=== PATIENT | female | born 1945 | race Caucasian/White ===

== ENCOUNTER 2016-11-12 09:23 | Inpatient (IN) | payer MEDICARE, BC ==
[~2016-11-12] VITALS: Ht 162.6 cm; Wt 69.7 kg
[2017-01-05] VITALS (11 sets, daily range): BP systolic 90–128; BP diastolic 50–70; PULSE 48–64; TEMP 97.3–98
[2017-01-05] MEDS ORDERED: ALLEGRA 60MG TA60 MG PO (08:26)
[2017-01-05] MEDS ORDERED: CRESTOR5 MG PO (08:27)
[2017-01-05] MEDS ORDERED: BENICAR 20MG TA20 MG PO (08:27)
[2017-01-05] MEDS ORDERED: TENORMIN100 MG PO (08:27)
[2017-01-05] MEDS ORDERED: HCTZ12.5TAB PO (08:28)
[2017-01-05] MEDS ORDERED: HUMALOGKP50/50 SQ (08:29)
[2017-01-05] MEDS ORDERED: LANTUS100 U/ML SQ (08:30)
[2017-01-05] MEDS ORDERED: PROTONIX 40MG T40 MG PO (08:31)
[2017-01-05] MEDS ORDERED: ONGLYZA5 MG PO (08:31)
[2017-01-05] MEDS ORDERED: CARAFATE 1GM1 G PO (08:33)
[2017-01-05] MEDS ORDERED: FLONASEALLERGY (08:34)
[2017-01-05] MEDS ORDERED: SYSTANE 0.4%-0.1 SOL OP (08:35)
[2017-01-06 00:50] VITALS: BP 126/48; PULSE 52; TEMP 98.1
[2017-01-06 04:59] VITALS: BP 110/52; PULSE 52; TEMP 98.1
[2017-01-06 06:34] LABS: HEMATOCRIT 33.9 % (37.0-47.0); HEMOGLOBIN 11.1 g/dl (12.5-16.0)
[2017-01-06 07:54] VITALS: BP 104/51; PULSE 57; TEMP 98.2
[2017-01-06 11:40] VITALS: BP 111/55; PULSE 55
[2017-01-06 16:14] VITALS: BP 110/51; PULSE 58; TEMP 97.8
[2017-01-06 19:02] VITALS: BP 128/48; PULSE 60; TEMP 98.9
[2017-01-07 00:06] VITALS: BP 135/65; PULSE 78; TEMP 98.9
[2017-01-07 04:00] VITALS: BP 116/56; PULSE 61; TEMP 98.9
[2017-01-07 05:01] LABS: HEMATOCRIT 34.1 % (37.0-47.0); HEMOGLOBIN 11.2 g/dl (12.5-16.0)
[2017-01-07 10:03] VITALS: BP 151/63; PULSE 70
[2017-01-07 20:35] VITALS: BP 126/49; PULSE 74; TEMP 98.5
[2017-01-08 04:01] VITALS: BP 125/54; PULSE 72; TEMP 98.4
[2017-01-08 08:37] VITALS: BP 118/61; PULSE 77; TEMP 98.8
[2017-01-08 11:50] VITALS: BP 96/47; PULSE 68; TEMP 97.9
== END 2017-01-08 14:30 | disposition home or self-care (01) | DRG 470 ==
LOC: JCC 12-08 12:00
PROVIDERS: Orthopaedic Surgery
PROC: 0SRC0J9 Replacement of Right Knee Joint with Synthetic Substitute, Cemented, Open Approach (ICD-10-PCS; principal; 2017-01-06)
DX: M17.11 Unilateral primary osteoarthritis, right knee (principal); I10 Essential (primary) hypertension; E11.9 Type 2 diabetes mellitus without complications; G14 Postpolio syndrome; K21.9 Gastro-esophageal reflux disease without esophagitis; R13.10 Dysphagia, unspecified; Z86.73 Personal history of transient ischemic attack (TIA), and cerebral infarction without residual deficits
CPT/HCPCS: 99222; 99231-AI; 99233-AI; 99238; A4315; A9284; C1713; C1776; J0461; J0690; J1815; J2250; J2405; J2704; J3010; J3260; J7030

== ENCOUNTER → 2016-12-24 | Outpatient (CLI) | payer MEDICARE, BC ==
[~2016-12-24] MED LIST: ALLEGRA 60MG TA60 MG PO; BENICAR 20MG TA20 MG PO; CARAFATE 1GM1 G PO; CRESTOR5 MG PO; FLONASEALLERGY; HCTZ12.5TAB PO; HUMALOGKP50/50 SQ; LANTUS100 U/ML SQ; ONGLYZA5 MG PO; PROTONIX 40MG T40 MG PO; SYSTANE 0.4%-0.1 SOL OP; TENORMIN100 MG PO
[2016-12-24 17:55] LABS: HIV 1/2 Antibodies Non-Reactive; HIV-1p24 Antigen Non-Reactive
== END ==
LOC: COL.LAB 16:36
PROVIDERS: Orthopaedic Surgery
DX: Z01.812 Encounter for preprocedural laboratory examination (principal)

== ENCOUNTER 2017-02-10 05:41 | Day surgery (SDC) | payer MEDICARE, BC ==
[2017-02-10] VITALS (8 sets, daily range): BP systolic 109–165; BP diastolic 55–94; PULSE 68–75; TEMP 97.5–98
[~2017-02-10] VITALS: Ht 162.6 cm; Wt 74.7 kg
[2017-02-10] MEDS ORDERED: ALLEGRA ALLERG180 MG PO (06:25)
[2017-02-10] MEDS ORDERED: SYSTANE NIGHTT3.5 GM OP (06:26)
[2017-02-10] MEDS ORDERED: VITAMIN D31000 I1 PO (06:27)
[2017-02-10] MEDS ORDERED: ULTRAM 50MG TAB50 MG PO (06:28)
[2017-02-10] MEDS ORDERED: ASPIRIN 32325 MG/TAB PO (06:29)
[2017-02-10] MEDS ORDERED: NORCO 325 MG-7.1 TAB PO ×2 (06:31→09:10)
== END 2017-02-10 09:30 | disposition home or self-care (01) ==
LOC: SDCO 05:41
DX: M25.661 Stiffness of right knee, not elsewhere classified (principal); Z96.651 Presence of right artificial knee joint; E11.9 Type 2 diabetes mellitus without complications; Z79.4 Long term (current) use of insulin; I10 Essential (primary) hypertension; M41.9 Scoliosis, unspecified; Z68.26 Body mass index [BMI] 26.0-26.9, adult; R20.2 Paresthesia of skin; K21.9 Gastro-esophageal reflux disease without esophagitis; R01.1 Cardiac murmur, unspecified; J45.909 Unspecified asthma, uncomplicated; M19.90 Unspecified osteoarthritis, unspecified site; K58.9 Irritable bowel syndrome, unspecified; I38 Endocarditis, valve unspecified; Z86.12 Personal history of poliomyelitis; R26.2 Difficulty in walking, not elsewhere classified; R53.83 Other fatigue; Z90.710 Acquired absence of both cervix and uterus; Z86.73 Personal history of transient ischemic attack (TIA), and cerebral infarction without residual deficits; E07.9 Disorder of thyroid, unspecified
CPT/HCPCS: J1885; J2250; J2270; J2405; J2704; J7030

== ENCOUNTER → 2017-02-23 | Outpatient (CLI) | payer MEDICARE, BC ==
[~2017-02-23] MED LIST changes: +ALLEGRA ALLERG180 MG PO; +ASPIRIN 32325 MG/TAB PO; +NORCO 325 MG-7.1 TAB PO; +SYSTANE NIGHTT3.5 GM OP; +ULTRAM 50MG TAB50 MG PO; +VITAMIN D31000 I1 PO
[2017-02-23 16:44] LABS: BASO % 0.6 % (0.0-2.0); EOS # 0.3 (0.0-0.7); EOS % 4.4 % (0-4.0); GRAN # 3.6 (1.4-6.5); GRAN % 53.6 % (42.2-75.2); HEMATOCRIT 38.9 % (37.0-47.0); HEMOGLOBIN 12.5 g/dl (12.5-16.0); LYMPH # 2.1 (1.2-3.4); LYMPH % 30.9 % (20.0-51.0); MEAN CELL VOLUME 92 fl (80.0-100.0); MEAN CORPUSCULAR HEMOGLOBIN 30 pg (27.0-31.0); MEAN CORPUSCULAR HGB CONC 32 g/dl (33.0-37.0); MEAN PLATELET VOLUME 10.7 fl (7.4-10.4); MONO # 0.7 (0.1-0.6); MONO % 10.1 % (1.7-9.3); PLATELET COUNT 376 K/mm3 (130-400); RED BLOOD COUNT 4.21 M/mm3 (4.10-5.30); REDCELL DISTRIBUTION WIDTH-CV 13.6 % (11.5-14.5); WHITE BLOOD COUNT 6.8 K/mm3 (4.8-10.8)
[2017-02-23 17:12] LABS: ERYTHROCYTE SEDIMENTATION RATE 10 mm/hr (0-30)
== END ==
LOC: COL.LAB 16:06
PROVIDERS: Orthopaedic Surgery
DX: M79.89 Other specified soft tissue disorders (principal); Z96.651 Presence of right artificial knee joint